=== PATIENT | male | born 1990 | race Caucasian/White ===

== ENCOUNTER 2019-02-17 05:57 | Emergency (ER) | payer MEDICAID ==
[~2019-02-17] VITALS: Ht 188 cm; Wt 110.9 kg
[2019-02-17 06:01] VITALS: Ht 188 cm; Wt 110.9 kg
[2019-02-17] MEDS ORDERED: HYDROCODON-ACE1 EAC7 PO (06:02)
[2019-02-17] MEDS ORDERED: VALIUM 2 MG TAB2 MG (06:03)
[2019-02-17 07:02] VITALS: BP 132/78
== END 2019-02-17 07:02 | disposition home or self-care (01) ==
LOC: D.ER 05:57
DX: M19.012 Primary osteoarthritis, left shoulder (principal)